=== PATIENT | female | born 1985 | race Caucasian/White ===

== ENCOUNTER 2016-08-12 07:09 | Emergency (ER) | payer MEDICAID ==
[2016-08-12 07:22] VITALS: BP 118/79
[2016-08-12] MEDS ORDERED: DELTASONE PO ONE (08:55)
[2016-08-12] MEDS ORDERED: TORADOL IM ONE (08:55)
[2016-08-12] MEDS ORDERED: BICILLIN L-A IM ONE (08:55)
--- NOTE | 2016-08-12 08:55 | Emergency Department Report ---
HPI - General Chief Complaint: Sore Throat Time Seen by Provider: 08/12/16 08:10 - HPI HPI: Patient reports sore throat body aches for 3 days. She says she's having fever and chills. She reports that she has a history of strep in the past and it feels like she is strep. Denies any drooling, difficulty breathing, nausea vomiting, headache, abdominal pain or chest pain. Reports this is 7 out of 10 and is worse with swallowing. She says she took Tylenol but it didn't help. ED Past Medical Hx - Past Medical History Previous Medical History?: No - Surgical History Past Surgical History?: Yes Additional Surgical History: C SECTIONS X3. WIRST SURGERY - Family History Family history: no significant - Social History Smoking Status: Never Smoker Substance Use Type: None - Medications Home Medications: Home Medications Medication Instructions Recorded Confirmed Last Taken Type Ibuprofen [Motrin] 600 mg PO Q8H PRN #15 tablet 08/12/16 Unknown Rx ED Review of Systems ROS: Stated complaint: FEVER, BODY PAIN, TONSILS Other details as noted in HPI Comment: All other systems reviewed and negative Constitutional: chills, fever Eyes: denies: eye discharge ENT: throat pain. denies: ear pain, congestion Respiratory: no symptoms reported Cardiovascular: denies: chest pain, palpitations, edema, syncope Gastrointestinal: denies: abdominal pain, nausea, vomiting, diarrhea Musculoskeletal: denies: back pain, joint swelling, arthralgia Skin: denies: rash Neurological: denies: headache Physical Exam - Physical Exam Vital Signs: Vital Signs 08/12/16 07:18 Temperature 100.2 F H Pulse Rate 77 Respiratory 18 Rate Blood Pressure 118/79 O2 Sat by Pulse 100 Oximetry Vital Signs 08/12/16 08/12/16 07:18 09:01 Temperature 100.2 F H 99.2 F Pulse Rate 77 Respiratory 18 Rate Blood Pressure 118/79 O2 Sat by Pulse 100 Oximetry General: This is a 31-year-old female well-nourished well-developed in no acute distress. Physical Exam: Head: Normocephalic atraumatic Mouth: Moist, positive pharyngeal exudate and erythema. Uvula is midline and oral airway is patent. No facial swelling. No peritonsillar abscesses. Nose:NL mucosa. Maxillary and frontal sinuses nontender to palpate Neck: Supple, no C-spine tenderness, no tracheal deviation. Nontender to palpate. Positive anterior cervical adenopathy Ears: Bilateral TMs pearly cohen . Bilateral EAC without any redness swelling or drainage. Abdomen: Soft, nontender to palpate in all quadrants, normal bowel sounds in all quadrant and negative CVA tenderness bilaterally. Eyes: Bilateral pupils equal and reactive to light, bilateral EOM intact. Bilateral sclera and conjunctiva without injection. Normal accommodation. Lungs: Cleart to auscultate bilaterally no rhonchi wheezes or rales. Normal work of breathing extremity; No CCE. +2 pulses. No neurovascular compromise Cardiovascular: S1-S2, regular rate rhythm. No murmurs. Skin: clean Dry and intact no rash no lesions Psych: Normal mood and behavior ED Course Vital Signs 08/12/16 07:18 Temperature 100.2 F H Pulse Rate 77 Respiratory 18 Rate Blood Pressure 118/79 O2 Sat by Pulse 100 Oximetry Vital Signs 08/12/16 08/12/16 07:18 09:01 Temperature 100.2 F H 99.2 F Pulse Rate 77 Respiratory 18 Rate Blood Pressure 118/79 O2 Sat by Pulse 100 Oximetry - Reevaluation(s) Reevaluation #1: 08/12/16 09:08 Patient received Bicillin LA IM, Toradol 60 mg IM and Deltasone 60 mg. Emergency room. ED Medical Decision Making - Medical Decision Making ED course: I discussed the patient based on my physical findings she has strep throat. Based on [facility] criteria patient with exudative, erythema and mild swelling to throat. Patient with an enlarged cervical lymph nodes and fever with absent of upper respiratory symptoms. Patient was given Toradol 60 mg IM, Deltasone 60 mg by mouth. I discussed the choices of treatment for strep throat to include penicillin, amoxicillin or Bicillin injection in emergency room. She chose to be treated with Bicillin injection. Patient was given Bicillin LA 1.2 MU injection in emergency room for strep throat. I discussed diagnosis and treatment plan the patient and she is in agreement. Patient is stable and discharged home with prescription for Motrin and to follow up with her primary care physician in 3-5 days. Critical care attestation.: If time is entered above; I have spent that time in minutes in the direct care of this critically ill patient, excluding procedure time. ED Disposition Clinical Impression: Exudative pharyngitis, Fever in adult Disposition: DISCHARGED TO HOME OR SELFCARE Is pt being admited?: No Does the pt Need Aspirin: No Condition: Stable Instructions: Strep Throat (ED), Fever in Adults (ED) Additional Instructions: Gargle warm salt water and this will help his sore throat. Given Bicillin LA in emergency room as a 1 time treatment for strep throat. take Motrin which relieved his or sore throat as prescribed. Prescriptions: Ibuprofen [Motrin] 600 mg PO Q8H PRN #15 tablet PRN Reason: Pain Referrals: PRIMARY CARE, [Primary Care Provider] - 3-5 Days Forms: Work/School Release Form(ED)
== END 2016-08-12 09:27 | disposition home or self-care (01) ==
LOC: ED 07:09
DX: J02.9 Acute pharyngitis, unspecified (principal); R50.9 Fever, unspecified
CPT/HCPCS: 96372; 99282; J0561; J1885; J7512